=== PATIENT | male | born 1980 | race Native Hawaiian/Other Pacific Islander ===

== ENCOUNTER 2022-08-24 18:09 | Emergency (ER) | payer OTHER ==
[~2022-08-24] VITALS: Ht 82.8 cm; Wt 99.7 kg
[2022-08-24 18:23] VITALS: BP 131/80
--- NOTE | 2022-08-24 18:53 | ED Lower Extremity ---
General Chief Complaint: Lower Extremity Stated Complaint: RIGHT ANKLE/BIG TOE PAIN Nursing Triage Note: PATIENT STATES HE FEELS LIKE HE IS HAVING A GOUT EPISODE. STATES HE HAS HAD IT BEFORE BACK IN JULY AN TH SOME DIET CHANGES IT HAD GOTTEN BETTER BUT NOW HAS MOVED TO THE TOP OF HIS FOOT. Source: patient History of Present Illness Date Seen by Provider: Aug 24, 2022 Time Seen by Provider: 18:45 Initial Comments Patient is a 42 yo M who presents to the ED with right ankle/great toe swelling and redness over the last 3 weeks. Pt states he had a gout flare 8 years ago that was very similar to the current symptoms. He states he is currently traveling back home to [place] after dropping his daughter off at college in [place]. He states he has been eating fast food and thinks this is the reason he has the flare. He took some ibuprofen early this AM with minimal improvement in pain. Onset: other (3 weeks ago) Severity: moderate Pain/Injury Location: right ankle, right 1st toe Allergies and Home Medications Allergies Coded Allergies: No Known Drug Allergies (Unverified , 08/24/22) Patient Home Medication List Home Medication List Reviewed: Yes Indomethacin (Indomethacin) 50 Mg Capsule, 50 MG PO TID Prescribed by: Oz Apple on 08/24/221908 Last Action: New Order Prednisone (Prednisone) 20 Mg Tab, 40 MG PO DAILY Prescribed by: Oz Apple on 08/24/221905 Review of Systems Constitutional: no symptoms reported EENTM: no symptoms reported Respiratory: no symptoms reported Cardiovascular: no symptoms reported Gastrointestinal: no symptoms reported Genitourinary: no symptoms reported Musculoskeletal: gout, joint pain Past Emlsoqf-Qyxbxl-Modbuv Hx Patient Social History Tobacco Use?: No Use of E-Cig and/or Vaping dev: No Substance use?: No Alcohol Use?: No Pt feels they are or have been: No Immunizations Up To Date Influenza Vaccine Up-to-Date: Yes; Up-to-Date First/Initial COVID19 Vaccinat: 2020 Second COVID19 Vaccination Cliff: 2020 Third COVID19 Vaccination Date: 2020 COVID19 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 oz. 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 Patient has some swelling and redness noted to the R great toe and R ankle. He states the symptoms are c/w prior gout flares. Vital signs are reassuring. Patient given IM solumedrol and will be d/c'd home with rx for prednisone and indomethacin. Both are short term prescriptions and recommendations given to patient for him to see his PCP when he returns home to [place] in the next few days. Pt verbalized understanding. Departure Impression Primary Impression: Gout attack Qualified Codes: M10.9 - Gout, unspecified Disposition: 01 HOME, SELF-CARE Condition: Improved Departure-Patient Inst. 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
[2022-08-24] MEDS ORDERED: methylPREDNISolone 40 MG/ML (DEPO MEDROL) VIAL IM ONE (19:00)
[2022-08-24] MEDS ORDERED: PRD20T PO (19:06)
[2022-08-24] MEDS ORDERED: INDO50CA82 PO (19:09)
== END 2022-08-24 19:27 | disposition home or self-care (01) ==
LOC: ER 18:13 → EDBD 18:13 → ER 19:27
DX: M10.9 Gout, unspecified (principal)
CPT/HCPCS: 99284